=== PATIENT | male | born 1965 | race Caucasian/White ===

== ENCOUNTER 2024-09-19 18:24 | Emergency (ER) | payer OTHER, SELFPAY ==
[2024-09-19] VITALS (30 sets, daily range): BP systolic 95–145; BP diastolic 50–98; PULSE 60–66; RESP 13–23; TEMP 36.7–36.9; O2SAT 96–100
--- NOTE | ~2024-09-19 | XR_ITS ---
XR chest 1V portable Ordering provider: Tristan Vallejo MD History: 59 years Male with . generalized weakness . Comparison: None. FINDINGS: MEDIASTINUM: The cardiac silhouette is not enlarged. LUNGS: No effusions or pneumothorax. Opacification in the lower lobes suggestive of atelectasis versu s pneumonia. OTHER: No free air under the diaphragm. IMPRESSION: Bibasilar atelectasis versus pneumonia. Reviewed, dictated and finalized at location A.
--- NOTE | 2024-09-19 18:33 | ED_ITS ---
HPI - Weakness General Chief complaint: Weakness Stated complaint: weakness after dialysis Source: patient and EMS Mode of arrival: ambulatory Limitations: no limitations History of Present Illness HPI Narrative: 59-year-old male with a history hypertension, CAD status post stent 2 years ago, renal cell carcinoma status post nephrectomy, end-stage renal disease on hemodialysis the past 1 and half years presents to the ED with -- dizziness and lightheadedness 1 hour after being discharged from the dialysis center. patient had removal of approximately 4.5 L during dialysis. He usually has 4-5 L removal per session. patient took his p.m. dose of Coreg right after dialysis. Patient was noted to be hypotensive with blood pressure in the 70s. EMS started the patient on IV fluids and he got approximately 300 cc of IV fluids following which his blood pressure has improved. -- Generalized weakness No chest pain or shortness of breath. MD Complaint: generalized weakness Onset (ago): hour(s) ( 1 hour) Duration: constant Location: generalized Severity: moderate Relieving factors: none Exacerbating factors: none Associated symptoms: denies other symptoms Related Data Allergies Allergy/AdvReac Type Severity Reaction Status Date / Time Penicillins Allergy Intermediate Rash Verified 09/19/24 18:33 Review of Systems 2 Review of Systems: All systems reviewed & are unremarkable except as noted in HPI and below Constitutional: Constitutional: Reports as per HPI and Reports no additional constitutional complaints Eyes: Eyes: Reports as per HPI and Reports no additional eye complaints ENT: Reports system reviewed and no additional complaints, except as documented and Reports as per HPI Cardiovascular: Cardiovascular: Reports as per HPI and Reports no additional cardiovascular complaints Respiratory: Respiratory: Reports as per HPI and Reports no additional respiratory complaints Gastrointestinal: Gastrointestinal: Reports as per HPI and Reports no additional gastrointestinal complaints Genitourinary: Genitourinary: Reports no additional male genitourinary complaints and Reports as per HPI Comments: Patient is awaiting renal transplant. Musculoskeletal: Musculoskeletal: Reports no additional musculoskeletal complaints, Reports as per HPI and Reports back pain Comments: patient has chronic back pain for which she is due to get spinal fusion. Integumentary/Breasts: Skin/Breast: Reports system reviewed and no additional complaints, except as docu and Reports as per HPI Neurologic: Reports system reviewed and no additional complaints, except as documented and Reports as per HPI Psychiatric: Psychiatric: Reports no additional psychiatric complaints and Reports as per HPI Endocrine: Endocrine: Reports no additional endocrine complaints and Reports as per HPI Hematologic/Lymphatic: Hematologic/Lymphatic: Reports no additional hematologic/lymphatic complaints and Reports as per HPI Allergic/Immunologic: Allergic/Immunologic: Reports no additional allergic/immunologic complaints and Reports as per HPI [facility] Past Medical History Medical History (Updated 09/19/24 @ 22:03 by Tristan Vallejo MD) Degenerative disc disease Hypertension CAD (coronary artery disease) Renal cell cancer ESRD (end stage renal disease) Exam 2 Narrative: blood pressure is 109/55. Pulse of 66. Oxygen saturation of 96% on room air. Const: General: no acute distress Orientation/consciousness: patient oriented x3 Limitations: no limitations HENMT: Head: normal to inspection Ears: external ears normal F angel/Nose/Sinus: Normal external nose present Face and sinus: normal facial exam Mouth: Yes Normal oral and palatal mucosa present Throat: posterior oropharynx normal Eyes: Conjunctivae: conjunctivae normal Pupils: Equal, round and reactive pupils present EOM: EOMs intact bilaterally Direct Ophthalmoscopy: no photophobia Neck: Neck: normal visual inspection, no lymphadenopathy and no meningeal signs Chest: Chest palpation & inspection: normal inspection of the chest Resp: Effort & Inspection: normal respiratory effort Auscultation: clear to auscultation bilaterally Cardio: Rate: regular rate Rhythm: regular rhythm GI: GI Palp: Yes Soft to palpation Auscultation: normal bowel sounds O ther: No tenderness/rigidity / rebound. : General: Yes no CVA tenderness Back/Spine/Pelvis: Back: no CVA tenderness Skin: General skin exam: normal color Rashes: no rashes Wounds: no wounds Neuro: General: patient oriented x3, moves all extremities, no meningeal signs, no focal motor deficits and CN's II-XI intact bilaterally Speech: n ormal speech Extrem: General: normal to inspection and no clubbing, cyanosis or edema Psych: Mental Status: mental status grossly normal Affect: normal affect Attitude: cooperative Course Course Emergency Course: hypotension after hemodialysis-- Blood pressure resolved with 300 mL of IV fluids. Subsequently blood pressure has remained stable. The patient had an EKG which did not show any acute findings. Patient had 2 sets of cardiac enzymes which are negative. patient does not have any fever. she has normal white cell count and normal lactate which makes sepsis less likely. Her shock appears to be secondary to hypovolemic shock secondary to over zealous fluid removal during dialysis. Chest x-ray revealed bibasilar infiltrates/atelectasis- No respiratory symptoms. Normal white cell count. End-stage renal disease chronic anemia Vital Signs Vital signs: Vital Signs Temperature 36.7 C 09/19/24 18:30 Pulse Rate 66 09/19/24 18:30 Respiratory Rate 18 09/19/24 18:30 Blood Pressure 95/51 L 09/19/24 18:30 Pulse Oximetry 98 09/19/24 18:30 Oxygen Delivery Room Air 09/19/24 18:30 Temperature 36.9 C 09/19/24 20:17 Pulse Rate 63 09/19/24 21:18 Respiratory Rate 18 09/19/24 21:18 Blood Pressure 120/98 H 09/19/24 20:47 Pulse Oximetry 100 09/19/24 21:18 Oxygen Delivery Room Air 09/19/24 20:17 MDM - Weakness MDM Narrative Medical decision making narrative: hypovolemic shock after dialysis treatment end-stage renal disease chronic anemia Differential Diagnosis Differential diagnosis: Likely acute myocardial infarction Medical Records Attestation: I reviewed the patient's medical records. Lab Data Attestation: I reviewed the patient's lab results. 09/19/24 19:03 09/19/24 19:03 Labs: Lab Results 09/19/24 09/19/24 Range/Units 19:03 21:04 WBC 6.7 (4.8-10.8) K/mm3 RBC 3.16 L (4.70-6.10) M/mm3 Hgb 10.6 L (14.0-18.0) g/dL Hct 32.6 L (40.0-54.0) % MCV 103.2 H (78.0-102.0) fL MCH 33.5 H (27.0-31.0) pg MCHC 32.5 (32-36) g/dL RDW 13.2 (11.6-14.4) % Plt Count 216 (150-420) K/mm3 MPV 9.3 (8.7-11.0) fl Immature Gran % (Auto) 0.3 H (0.0-0.0) % Neut % (Auto) 64.2 (50.0-70.0) % Lymph % (Auto) 19.8 (18.0-42.0) % [place] % (Auto) 11.1 H (2.0-11.0) % Eos % (Auto) 3.9 (1.0-6.0) % Baso % (Auto) 0.7 (0.0-1.0) % Lymph # (Auto) 1.33 (1.10-4.50) K/mm3 [place] # (Auto) 0.75 (0.10-0.90) K/mm3 Eos # (Auto) 0.26 (0.02-0.50) K/mm3 Baso # (Auto) 0.05 (0.00-0.10) K/mm3 Abs Immat Gran (auto) 0.02 H (0.00-0.00) K/mm3 Absolute Neuts (auto) 4.32 (1.70-7.20) K/mm3 Absolute Nucleated RBC 0.00 (0.00-0.00) K/mm3 Nucleated RBC % 0.0 (0-0.0) % Sodium 135 L (137-145) mmol/L Potassium 4.1 (3.4-5.0) mmol/L Chloride 100 (98-107) mmol/L Carbon Dioxide 28 (22-30) mmol/L Anion Gap 7 (4-12) mmol/L BUN 22 H (9-20) mg/dL Creatinine 4.03 H (0.7-1.3) mg/dL Estim Creat Clear Calc 25 ml/min Estimated GFR 15 L (59 - ) Glucose 208 H (65-110) mg/dL Calculated Osmolality 289 (285-295) mOsm/kg Lactic Acid 1.8 (0.4-2.0) mmol/L Calcium 9.0 (8.4-10.2) mg/dL Total Bilirubin 0.8 (0.2-1.3) mg/dL AST 23 (17-59) U/L ALT 17 (6-50) U/L Alkaline Phosphatase 57 (38-126) U/L Troponin I 0.016 0.018 (0.000-0.034) ng/mL Total Protein 6.3 (6.3-8.2) g/dL Albumin 3.9 (3.5-5.1) g/dL Lipase 113 (23-300) U/L ECG Data EKG #1: ECG completion date: 09/19/24 ECG completion time: 19:12 Interpretation: Normal sinus rhythm. Normal axis. No ST elevation. T flattening in 1 and aVL. Discharge Plan Discharge Clinical Impression: Hypovolemic shock Patient Disposition: Home Condition: Stable Instructions: Antibiotic Form, End Stage Kidney Disease (ED) Patient Language: Serbian Follow-up/Referrals: UNKNOWN,DOCTOR [Non-Staff] - Time of Disposition: 22:03
--- NOTE | 2024-09-19 18:43 | ECG_ITS ---
Test Date: 2024-09-19 19:12:30 Measurements Intervals [place] Rate: 62 P: 47 MT: 221 QRS: 32 QRSD: 121 T: 64 QT: 423 QTc: 430 Interpretive Statements SINUS RHYTHM WITH FIRST DEGREE AV BLOCK INTRAVENTRICULAR CONDUCTION DELAY BASELINE ARTIFACT- I, II, AVR, AVL, AVF, V1 BORDERLINE ECG No previous ECG available for comparison Electronically Signed On 09-20-2024 06:02:02 CDT by Tony Beard D.O.
--- NOTE | 2024-09-19 19:05 | PC.NURSE ---
patient report received from ALIZA Keita. patient resting on stretcher, certified surgical technologist Crystal at bedside for EKG. blood work drawn per polymer engineer.
[2024-09-19 19:06] LABS: Basophils Absolute Auto 0.05 K/mm3 (0.00-0.10); Basophils Percent Auto 0.7 % (0.0-1.0); Eosinophils Absolute Auto 0.26 K/mm3 (0.02-0.50); Eosinophils Percent Auto 3.9 % (1.0-6.0); Hematocrit 32.6 % (40.0-54.0); Hemoglobin 10.6 g/dL (14.0-18.0); Immature Granulocyte Absolute 0.02 K/mm3 (0.00-0.00); Immature Granulocyte Percent A 0.3 % (0.0-0.0); Lymphocytes Absolute Auto 1.33 K/mm3 (1.10-4.50); Lymphocytes Percent Auto 19.8 % (18.0-42.0); Mean Corpuscular HGB Conc 32.5 g/dL (32-36); Mean Corpuscular Hemoglobin 33.5 pg (27.0-31.0); Mean Corpuscular Volume 103.2 fL (78.0-102.0); Mean Platelet Volume 9.3 fl (8.7-11.0); Monocytes Absolute Auto 0.75 K/mm3 (0.10-0.90); Monocytes Percent Auto 11.1 % (2.0-11.0); Neutrophils Absolute Auto 4.32 K/mm3 (1.70-7.20); Neutrophils Percent Auto 64.2 % (50.0-70.0); Platelet Count Result 216 K/mm3 (150-420); Red Blood Count 3.16 M/mm3 (4.70-6.10); Red Cell Distribution Width 13.2 % (11.6-14.4); White Blood Count 6.7 K/mm3 (4.8-10.8)
[2024-09-19 19:18] LABS: Alanine Aminotransferase 17 U/L (6-50); Albumin Level 3.9 g/dL (3.5-5.1); Alkaline Phosphatase 57 U/L (38-126); Anion Gap 7 mmol/L (4-12); Aspartate Amino Transferase 23 U/L (17-59); Bilirubin,Total 0.8 mg/dL (0.2-1.3); Blood Urea Nitrogen 22 mg/dL (9-20); Carbon Dioxide 28 mmol/L (22-30); Chloride 100 mmol/L (98-107); Estimated CRCL calculation 25 ml/min; Estimated Glomerular Filt Rate 15; Glucose 208 mg/dL (65-110); Lipase 113 U/L (23-300); Osmolality Calculated 289 mOsm/kg (285-295); Potassium 4.1 mmol/L (3.4-5.0); Sodium 135 mmol/L (137-145); Total Protein 6.3 g/dL (6.3-8.2)
[2024-09-19 19:19] LABS: Lactic Acid Reflex 1.8 mmol/L (0.4-2.0)
--- NOTE | 2024-09-19 19:25 | PC.NURSE ---
TRINI Vallejo at patient bedside providing update to patient and visitor at this time.
[2024-09-19 19:29] LABS: Troponin I 0.016 ng/mL (0.000-0.034)
--- NOTE | 2024-09-19 20:03 | PC.NURSE ---
ERP Dr. Vallejo at patient bedside providing update and plan for repeat troponin at 9 pm. visitor leaving to go eat dinner, will return later. call light within reach.
--- NOTE | 2024-09-19 20:21 | PC.NURSE ---
patient given warm blankets for comfort and coffee per request and ERP okay. assisted with getting onto internet on his cell phone. call light within reach. patient aware of plan for repeat EKG and troponin at 9 pm.
--- NOTE | 2024-09-19 20:26 | PC.NURSE ---
patient reports feeling much improved and states he took one of his home medicines, carvedilol while at dialysis for his bp. Dr. Vallejo asked patient about being given labetalol at dialysis for his bp as he states he was unaware patient had taken or been given any bp meds while at dialysis.
--- NOTE | 2024-09-19 21:00 | ECG_ITS ---
Test Date: 2024-09-19 21:08:44 Measurements Intervals [place] Rate: 57 P: 73 [place]: 260 QRS: 32 QRSD: 126 T: 65 QT: 426 QTc: 416 Interpretive Statements SINUS BRADYCARDIA WITH FIRST DEGREE AV BLOCK INTRAVENTRICULAR CONDUCTION DELAY BASELINE WANDER- II, III, AVF BORDERLINE ECG Compared to ECG 09/19/2024 19:12:30 HEART RATE HAS DECREASED Electronically Signed On 09-21-2024 06:35:38 CDT by Tony Beard D.O.
--- NOTE | 2024-09-19 21:04 | PC.NURSE ---
blood work drawn and PCT at bedside for repeat EKG.
[2024-09-19 21:30] LABS: Troponin I 0.018 ng/mL (0.000-0.034)
--- NOTE | 2024-09-19 22:11 | PC.NURSE ---
Dr. Vallejo at bedside for update of results and plan of care.
== END 2024-09-19 22:30 | disposition home or self-care (01) ==
PROVIDERS: Emergency Provider Internal Medicine Critical Care Medicine
DX: R57.1 Hypovolemic shock (principal); I25.10 Atherosclerotic heart disease of native coronary artery without angina pectoris; I12.0 Hypertensive chronic kidney disease with stage 5 chronic kidney disease or end stage renal disease; N18.6 End stage renal disease; Z99.2 Dependence on renal dialysis
CPT/HCPCS: 36415; 71045; 80053; 83605; 83690; 84484; 85025; 93005; 99284